=== PATIENT | male | born 1975 | race African-American/Black ===

== ENCOUNTER 2017-06-24 13:59 | Inpatient (IN) | payer OTHER ==
[~2017-06-24] VITALS: Ht 185.4 cm; Wt 123.0 kg
[2017-06-24 15:37] LABS: Basophils # (auto) 0.1 uL; Eosinophils # (auto) 0 uL; Eosinophils % (auto) 0.1 % (0.0-7.0); Hematocrit 45.3 % (41.0-53.0); Hemoglobin 15.5 g/dL (13.5-17.5); Lymphocytes # (auto) 0.9 uL; Lymphocytes % (auto) 8.7 % (10.0-50.0); Mean Corpuscular Hemoglobin 30.1 pg (28.0-32.0); Mean Corpuscular Hgb Conc. 34.2 g/dL (32.0-36.0); Mean Corpuscular Volume 87.8 fL (80.0-100.0); Monocytes # (auto) 0.4 uL; Neutrophils # (auto) 8.9 uL; Neutrophils % (auto) 86.2 % (37.0-80.0); Nucleated Red Blood Cells % 0.2 %; Platelet Count (auto) 256 10^3/uL (140-450); Red Blood Cells 5.15 10^6/uL (4.5-5.90); Red Cell Distribution Width 13.8 % (11.8-14.3); White Blood Cell 10.3 10^3/uL (4.4-10.8)
[2017-06-24] MEDS ORDERED: CLOPIDOGREL BISULFATE 75 MG TAB PO ONE (16:00)
[2017-06-24 16:02] LABS: Albumin 4.4 g/dL (3.4-5.0); BUN/Creatinine Ratio 17.5; Bilirubin, Total 0.7 mg/dL (0.2-1.0); Calcium 9.1 mg/dL (8.5-10.1); Potassium 3.7 mmol/L (3.5-5.1); Total Protein 8.1 g/dL (6.4-8.2)
[2017-06-24] MEDS ORDERED: ONDANSETRON HCL 4 MG/2 ML VIAL ONE (16:08)
[2017-06-24] MEDS ORDERED: ONDANSETRON HCL 4 MG/2 ML VIAL IV ONE (16:30)
[2017-06-24] MEDS ORDERED: NALBUPHINE HCL 10 MG/1ml INJECTION ONE (16:42)
[2017-06-24] MEDS ORDERED: NALBUPHINE HCL 10 MG/1ml INJECTION IV ONE (16:45)
[2017-06-24] MEDS ORDERED: cloNIDine HCL 0.1 MG TAB ONE (16:52)
[2017-06-24] MEDS ORDERED: LABETALOL HCL 5 MG/ML ML 20ML VIAL IV ONE (17:15)
[2017-06-24] MEDS ORDERED: cloNIDine HCL 0.1 MG TAB PO ONE (17:15)
[2017-06-24] MEDS ORDERED: METOPROLOL TARTRATE 50 MG TAB PO ONE (18:00)
[2017-06-24] MEDS ORDERED: MORPHINE SULF INJ 2 MG/ML SYRINGE 1ML IV PRN (18:00)
[2017-06-24] MEDS ORDERED: LISINOPRIL 10 MG TAB PO ONE (18:00)
[2017-06-24] MEDS ORDERED: amLODIPine BESYLATE 5 MG TAB PO ONE (18:00)
[2017-06-24] MEDS ORDERED: NITROGLYCERIN 0.4 MG SL TAB SL PRN (18:00)
[2017-06-24] MEDS: cloNIDine HCL 0.1 MG TAB PO PRN (21:16)
[2017-06-24] MEDS: METOPROLOL TARTRATE 50 MG TAB PO SCH (22:00)
[2017-06-24] MEDS: NICARDIPINE 25MG/250ML BAG KIT 250 ML IV SCH (23:35)
[2017-06-25 01:13] LABS: Urine Bacteria NONE SEEN /hpf (None Seen); Urine Blood Negative /uL (Negative); Urine Mucus FEW (None Seen); Urine WBC 1 /hpf (0 - 3)
[2017-06-25 01:24] LABS: Alcohol, Urine < 3.0 mg/dL (0-5); Amphetamine Screen, Urine NEGATIVE (NEGATIVE); Barbiturate Scree,Urine NEGATIVE (NEGATIVE); Benzodiazephine Screen, Urine NEGATIVE (NEGATIVE); Cannabinoid Screen, Urine NEGATIVE (NEGATIVE); Cocaine Screen, Urine NEGATIVE (NEGATIVE); Opiate Scree,Urine NEGATIVE (NEGATIVE); Phencyclidine Screen, Urine NEGATIVE (NEGATIVE)
[2017-06-25] MEDS: NICARDIPINE 25MG/250ML BAG KIT 250 ML IV SCH (03:18)
[2017-06-25] MEDS: HYDROcodone-ACET 10/325MG TAB PO PRN ×3 (03:33→16:23)
[2017-06-25 06:48] LABS: Anion Gap 8 (5-15); BUN/Creatinine Ratio 15.9; Blood Urea Nitrogen 17 mg/dL (7-18); Calcium 8.5 mg/dL (8.5-10.1); Carbon Dioxide 26 mmol/L (21-32); Chloride 106 mmol/L (98-107); GFR African American 97 mL/min; GFR Non-African American 81 mL/min; Glucose 107 mg/dL (74-106); Potassium 3.9 mmol/L (3.5-5.1); Sodium 140 mmol/L (136-145)
[2017-06-25 08:44] VITALS: BP 189/96
[2017-06-25] MEDS: CLOPIDOGREL BISULFATE 75 MG TAB PO SCH (09:26)
[2017-06-25] MEDS: LOSARTAN POTASSIUM 50 MG TAB PO SCH ×2 (11:01→17:38)
[2017-06-25] MEDS: LISINOPRIL 10 MG TAB PO SCH ×2 (11:01→17:39)
[2017-06-25] MEDS: amLODIPine BESYLATE 5 MG TAB PO SCH ×2 (11:01→17:38)
[2017-06-25] MEDS: METOPROLOL TARTRATE 50 MG TAB PO SCH ×2 (11:01→17:37)
[2017-06-25] MEDS: cloNIDine HCL 0.1 MG TAB PO PRN (16:43)
[2017-06-25] MEDS: ASPirin-EC 81 mg tab PO SCH (16:47)
[2017-06-25 17:00] LABS: Cholesterol 187 mg/dL (< 200); HDL Cholesterol 42 mg/dL (40-59); LDL Cholesterol 129 mg/dL (< 100); Triglycerides 135 mg/dL (< 150)
[2017-06-25] MEDS ORDERED: ONDANSETRON HCL 4 MG/2 ML VIAL IV PRN (19:45)
[2017-06-25] MEDS: PANTOPRAZOLE 40 MG/10 ML VIAL IV SCH (20:44)
[2017-06-25 22:00] VITALS: BP 137/82
[2017-06-25] MEDS: ATORVASTATIN 20 MG TAB PO SCH (22:06)
[2017-06-26 05:00] VITALS: BP 134/104
[2017-06-26 09:00] VITALS: BP 149/74
[2017-06-26] MEDS: ASPirin-EC 81 mg tab PO SCH (10:22)
[2017-06-26] MEDS: CLOPIDOGREL BISULFATE 75 MG TAB PO SCH (10:24)
[2017-06-26] MEDS: PANTOPRAZOLE 40 MG/10 ML VIAL IV SCH (10:25)
[2017-06-26] MEDS: METOPROLOL TARTRATE 50 MG TAB PO SCH ×4 (10:25→21:48)
[2017-06-26] MEDS: HYDROcodone-ACET 10/325MG TAB PO PRN ×2 (10:25→19:09)
[2017-06-26] MEDS: cloNIDine HCL 0.1 MG TAB PO PRN ×2 (11:56→19:55)
[2017-06-26 17:09] VITALS: BP 144/85
[2017-06-26] MEDS: ATORVASTATIN 20 MG TAB PO SCH (21:40)
[2017-06-26 22:20] VITALS: BP 140/91
[2017-06-27] MEDS: cloNIDine HCL 0.1 MG TAB PO PRN ×2 (02:41→16:16)
[2017-06-27 04:46] VITALS: BP 128/83
[2017-06-27] MEDS: METOPROLOL TARTRATE 50 MG TAB PO SCH ×2 (05:58→13:24)
[2017-06-27] MEDS: PANTOPRAZOLE 40 MG/10 ML VIAL IV SCH (08:30)
[2017-06-27] MEDS: ASPirin-EC 81 mg tab PO SCH (08:31)
[2017-06-27 09:00] VITALS: BP 159/89
[2017-06-27] MEDS ORDERED: amLODIPine BESYLATE 5 MG TAB PO SCH (10:00)
[2017-06-27] MEDS ORDERED: LOSARTAN POTASSIUM 50 MG TAB PO SCH (10:00)
[2017-06-27 12:45] VITALS: BP 156/84
[2017-06-27 13:27] VITALS: BP 156/84
[2017-06-27 16:53] VITALS: BP 168/95
== END 2017-06-27 17:30 | DRG 78 ==
LOC: EDBD 13:59 → ER 13:59 → TELE 14:00 → EEVIPCON 14:00 → TELE-E-ADS 06-25 20:03
PROVIDERS: ADMIT Internal Medicine; ATTEND Internal Medicine
DX: I67.4 Hypertensive encephalopathy (principal); I16.1 Hypertensive emergency; I10 Essential (primary) hypertension; I73.9 Peripheral vascular disease, unspecified; Z79.899 Other long term (current) drug therapy; Z87.891 Personal history of nicotine dependence; Z88.0 Allergy status to penicillin; Z90.49 Acquired absence of other specified parts of digestive tract
CPT/HCPCS: 36415; 70450; 70551; 80048; 80053; 80061; 80307; 81001; 84443; 84484; 85025; 93005; 93306; 93886; 96374; 96375; C9113; J2405

== ENCOUNTER 2017-10-22 10:54 | Inpatient (IN) | payer OTHER ==
[~2017-10-22] VITALS: Ht 182.9 cm; Wt 114.0 kg
[2017-10-22] MEDS ORDERED: cloNIDine HCL 0.1 MG TAB ONE (11:01)
[2017-10-22] MEDS ORDERED: cloNIDine HCL 0.1 MG TAB PO ONE ×2 (11:15→13:15)
[2017-10-22 12:10] LABS: Basophils # (auto) 0 uL; Basophils % (auto) 0.5 % (0.0-2.0); Eosinophils # (auto) 0.1 uL; Eosinophils % (auto) 0.8 % (0.0-7.0); Hematocrit 42.3 % (41.0-53.0); Hemoglobin 14.2 g/dL (13.5-17.5); Lymphocytes # (auto) 1.5 uL; Lymphocytes % (auto) 20.7 % (10.0-50.0); Mean Corpuscular Hemoglobin 29.6 pg (28.0-32.0); Mean Corpuscular Hgb Conc. 33.6 g/dL (32.0-36.0); Monocytes # (auto) 0.4 uL; Monocytes % (auto) 6.1 % (0.0-12.0); Neutrophils # (auto) 5.3 uL; Neutrophils % (auto) 71.9 % (37.0-80.0); Nucleated Red Blood Cells % 0.1 %; Platelet Count (auto) 249 10^3/uL (140-450); Red Blood Cells 4.81 10^6/uL (4.5-5.90); Red Cell Distribution Width 13.8 % (11.8-14.3); White Blood Cell 7.4 10^3/uL (4.4-10.8)
[2017-10-22 12:28] LABS: Alanine Aminotransferase 34 U/L (16-61); Alkaline Phosphatase 58 U/L (45-117); Anion Gap 9 (5-15); Aspartate Aminotransferase 18 U/L (15-37); Bilirubin, Total 0.3 mg/dL (0.2-1.0); Blood Urea Nitrogen 15 mg/dL (7-18); Calcium 8.5 mg/dL (8.5-10.1); Carbon Dioxide 24 mmol/L (21-32); Chloride 108 mmol/L (98-107); GFR African American 113 mL/min; GFR Non-African American 94 mL/min; Glucose 86 mg/dL (74-106); Potassium 3.7 mmol/L (3.5-5.1); Sodium 141 mmol/L (136-145); Total Protein 7.4 g/dL (6.4-8.2)
[2017-10-22] MEDS ORDERED: LABETALOL HCL 5 MG/ML ML 20ML VIAL IV ONE (16:45)
[2017-10-22] MEDS ORDERED: ACETAMINOPHEN 325 MG TAB PO PRN (18:45)
[2017-10-22] MEDS ORDERED: LABETALOL HCL 5 MG/ML ML 20ML VIAL IV PRN (18:45)
[2017-10-22] MEDS ORDERED: LOSARTAN POTASSIUM 50 MG TAB PO ONE (19:15)
[2017-10-22] MEDS ORDERED: amLODIPine BESYLATE 5 MG TAB PO ONE (19:15)
[2017-10-22] MEDS ORDERED: HCTZ 25 MG TAB PO ONE (19:15)
[2017-10-22] MEDS ORDERED: hydrALAZINE HCL 20 MG/ML VL ONE (21:15)
[2017-10-22] MEDS ORDERED: hydrALAZINE HCL 20 MG/ML VL IV ONE (21:15)
[2017-10-22 21:40] VITALS: BP 148/95
[2017-10-22] MEDS: cloNIDine HCL 0.1 MG TAB PO SCH (22:51)
[2017-10-22] MEDS: METOPROLOL TARTRATE 50 MG TAB PO SCH (22:51)
[2017-10-22 23:27] VITALS: BP 148/95
[2017-10-23 04:00] VITALS: BP 146/80
[2017-10-23] MEDS ORDERED: LISI40TA PO (05:16)
[2017-10-23 09:00] VITALS: BP 146/91
[2017-10-23] MEDS: HCTZ 25 MG TAB PO SCH (10:36)
[2017-10-23] MEDS: amLODIPine BESYLATE 5 MG TAB PO SCH (10:36)
[2017-10-23] MEDS: METOPROLOL TARTRATE 50 MG TAB PO SCH (10:36)
[2017-10-23] MEDS: cloNIDine HCL 0.1 MG TAB PO SCH ×2 (10:36→21:27)
[2017-10-23] MEDS: LOSARTAN POTASSIUM 50 MG TAB PO SCH (10:36)
[2017-10-23 13:00] VITALS: BP 140/89
[2017-10-23 18:11] VITALS: BP 135/86
[2017-10-23 22:00] VITALS: BP 144/94
[2017-10-24 05:00] VITALS: BP 139/83
[2017-10-24 08:00] VITALS: BP 138/73
[2017-10-24 09:10] VITALS: BP 158/100
[2017-10-24] MEDS: LOSARTAN POTASSIUM 50 MG TAB PO SCH (09:10)
[2017-10-24] MEDS: HCTZ 25 MG TAB PO SCH (09:10)
[2017-10-24] MEDS: amLODIPine BESYLATE 5 MG TAB PO SCH (09:11)
[2017-10-24] MEDS: METOPROLOL TARTRATE 50 MG TAB PO SCH (09:11)
[2017-10-24 13:00] VITALS: BP 153/89
[2017-10-24] MEDS ORDERED: ONDANSETRON HCL 4 MG/2 ML VIAL IV PRN (15:30)
[2017-10-24] MEDS: hydrALAZINE HCL 10 MG TAB PO SCH ×2 (15:30→21:50)
[2017-10-24] MEDS: cloNIDine HCL 0.1 MG TAB PO SCH ×2 (17:15→21:49)
[2017-10-24 22:00] VITALS: BP 138/89
[2017-10-25 05:00] VITALS: BP 148/98
[2017-10-25] MEDS: hydrALAZINE HCL 10 MG TAB PO SCH ×2 (06:00→14:00)
[2017-10-25 08:00] VITALS: BP_SYST 148; BP_SYST 162; BP_DIAS 88; BP_DIAS 98
[2017-10-25] MEDS: LOSARTAN POTASSIUM 50 MG TAB PO SCH (09:54)
[2017-10-25] MEDS: cloNIDine HCL 0.1 MG TAB PO SCH (09:54)
[2017-10-25] MEDS: METOPROLOL TARTRATE 50 MG TAB PO SCH (09:55)
[2017-10-25] MEDS: amLODIPine BESYLATE 5 MG TAB PO SCH (09:55)
[2017-10-25] MEDS: HCTZ 25 MG TAB PO SCH (09:56)
[2017-10-25] MEDS ORDERED: HYDR10TA26 PO (11:37)
[2017-10-25] MEDS ORDERED: CLO01T PO (11:37)
[2017-10-25] MEDS ORDERED: LOSA50TA6 PO (11:37)
[2017-10-25] MEDS ORDERED: AML5T PO (11:37)
[2017-10-25] MEDS ORDERED: HCTZ25T PO (11:37)
[2017-10-25] MEDS ORDERED: MET50T PO (11:37)
[2017-10-25] MEDS ORDERED: ACE325T PO (11:37)
[2017-10-25 12:00] VITALS: BP 180/110
[2017-10-25 12:04] VITALS: BP 162/88
== END 2017-10-25 15:30 | DRG 305 ==
LOC: EDBD 10:54 → ER 10:54 → TELE 10:55 → TELE-E-ADS 21:58 → EAST 10-23 21:54
PROVIDERS: ADMIT Internal Medicine; ATTEND Internal Medicine
DX: I16.9 Hypertensive crisis, unspecified (principal); Z87.891 Personal history of nicotine dependence; Z88.0 Allergy status to penicillin; Z90.49 Acquired absence of other specified parts of digestive tract
CPT/HCPCS: 36415; 80053; 84443; 84484; 85025; 93005; 96374; 96375; J2405